=== PATIENT | female | born 1995 | race Caucasian/White ===

== ENCOUNTER 2016-06-21 09:07 | Emergency (ER) | payer OTHER ==
[~2016-06-21] VITALS: Ht 154.9 cm; Wt 90.7 kg
[~2016-06-21 09:07] MED LIST: AMOXIL500 MG PO; ANAPROX DS550 MG PO; AUGMENTIN 875 M1 TAB PO; BENADRYL25 MG PO; FEOSOL65 MG; MACROBID100 M1 PO; MIRENA52 MG IU; NKHM; PNV-SELECT1 TAB; PREDNICOT20 MG PO; PROTONIX40 MG PO; PROZAC10 MG PO; PYRIDIUM100 MG PO; Zofran4 MG PO
[2016-06-21] MEDS ORDERED: Motrin,Rufen800 MG PO (09:59)
== END 2016-06-21 10:04 | disposition home or self-care (01) ==
LOC: ED 09:07
DX: S90.121A Contusion of right lesser toe(s) without damage to nail, initial encounter (principal); Z88.6 Allergy status to analgesic agent; W22.8XXA Striking against or struck by other objects, initial encounter; Y93.9 Activity, unspecified; Y92.9 Unspecified place or not applicable; Y99.9 Unspecified external cause status

== ENCOUNTER 2017-08-11 12:36 | Inpatient (IN) | payer OTHER ==
[2017-08-11] VITALS (7 sets, daily range): BP systolic 108–139; BP diastolic 64–88
[~2017-08-11] VITALS: Ht 152.4 cm; Wt 91.7 kg
--- NOTE | ~2017-08-11 | PR ---
[place], [place] PROGRESS NOTE NAME: MIC RUIZ UNIT #: [id number] ROOM: 401 DOCTOR: JONATHON FERMIN,DONOVAN Verduzco BIRTHDATE: [birth year] DOS: ADDENDUM After reviewing the chart, labs and radiographs, I agree with the plans as described above. We will follow the patient clinically and adjust accordingly. DONOVAN HOLT MD CM:PNTRANS [id number] DONOVAN HOLT MD 08/13/17 2344 interface
--- NOTE | ~2017-08-11 | CON ---
[place], [place] REPORT OF CONSULTATION NAME: MIC RUIZ UNIT #: [id number] ROOM: 401 DOCTOR: LIZZETH FERMINCHOLO BIRTHDATE: [birth year] DOS: 08/12/2017 HISTORY OF PRESENT ILLNESS: A 21 years old patient who has presented with epigastric distress, dysphagia, nausea, esophageal pyrosis. She was admitted for definitive evaluation since she had difficulty swallowing. Her white blood cell was 9, H and H of 13 and 38, lactic acid was 1.0, comprehensive metabolic panel, electrolyte balance, corrected potassium, GFR greater than 60. Phosphorus 1.5. CBC differential reassessed. Soft tissue of the neck, swelling of hypopharynx, tonsillitis has been reported. Strep throat study has been negative. PAST MEDICAL HISTORY: Associated with no previous continuous care medical issues. PAST SURGICAL HISTORY: Tonsillectomy, . SOCIAL HISTORY: Nonsmoker, nonalcohol consumer. FAMILY HISTORY: Noncontributory. ALLERGIES: OXYCODONE. MEDICATIONS: List has been reviewed. REVIEW OF SYSTEMS: HEENT: Denies double vision, blurred vision. RESPIRATORY: Denies shortness of breath. CARDIOVASCULAR: Denies chest pain. DIGESTIVE SYSTEM: Dysphagia, dyspepsia, nausea, difficulty swallowing, sore throat. PHYSICAL EXAMINATION: VITAL SIGNS: Stable. HEENT: Head normocephalic, nontraumatic. Mouth and buccal mucosa benign. NECK: Supple, no thyromegaly, no cervical lymphadenopathy. CHEST: Symmetric anatomy, no wheeze, no rhonchi. HEART: Normal sinus rhythm, no gallop, no murmur. ABDOMEN: Soft. No hepato-organomegaly. Bowel sounds present. No pulsatile mass. EXTREMITIES: No cyanosis, no pedal edema. NEUROLOGIC: Alert, oriented to time, place, person. IMPRESSION: Dysphagia, dyspepsia, epigastric pain, ruling out peptic ulcer disease, ruling out esophagitis, esophageal ulcer. PLAN AND DISCUSSION: We will proceed with endoscopy today. Labs reviewed, records reviewed. The patient has had trial of Augmentin therapy 2 weeks ago. [place], [place] REPORT OF CONSULTATION NAME: MIC RUIZ UNIT #: [id number] ROOM: 401 DOCTOR: LIZZETH FERMIN,CHOLO BIRTHDATE: [birth year] CHOLO MOREAU MD CM:CONSTR:REPORT OF CONSULTATION 1411 08/16/17 1140 ALEJANDRA NICOLE MIS.R
--- NOTE | ~2017-08-11 | PR ---
[place], [place] PROGRESS NOTE NAME: MIC RUIZ UNIT #: [id number] ROOM: 401 DOCTOR: CARLY PATEL,AUGUST BIRTHDATE: [birth year] DOS: 08/13/2017 SUBJECTIVE: Mic is a 21-year-old female who is being followed for tonsillitis. She remains on Zosyn. She was changed from Unasyn to Zosyn due to shortage per pharmacy earlier today. She is also on fluconazole. She had had an EGD done which showed some erosions as well as what appeared to be yeast along her esophagus. She had recently been treated with Augmentin. The fungal brushings are pending. Her blood cultures are negative. Influenza was negative. Strep throat culture was negative. She had a temperature today of 101 this afternoon. She has run fevers intermittently though she feels like she is improving overall. She had an IV infiltrate in her right forearm last night and had pain of the right forearm last night. The IV was moved to the left arm today and she developed swelling and erythema of her right forearm earlier today again possibly from an infiltrate. LABORATORY DATA: WBCs 5.7, platelets 117, BUN 9, creatinine 0.59. REVIEW OF SYSTEMS: No nausea, vomiting or diarrhea. No rash or itch. She is tolerating orals better today than she had been and still have burning and discomfort when she swallows going down her esophagus, continues to have some swelling of her neck glands and tenderness. CURRENT MEDICATIONS: Diflucan, Zosyn, Chloraseptic, Protonix, vitamin D, Lovenox, Zofran, Restoril, milk of mag, Dulcolax, Tylenol. PHYSICAL EXAMINATION: VITAL SIGNS: Temperature 101.0, pulse 94, respirations 16, BP 122/83. GENERAL: A 21-year-old female in no acute distress. HEENT: Normocephalic, no visible thrush or rehan of the throat, some mild right cervical node enlargement with tenderness. LUNGS: Clear to auscultation bilaterally. Respirations are even and unlabored. HEART: Regular rhythm. No murmur appreciated. ABDOMEN: Soft, nondistended. EXTREMITIES: No edema, deformity or cyanosis. SKIN: Warm, dry, free of rashes in right forearm where she had had prior IV. No cord palpable. Does have some mild erythema and tenderness. She states it is improving. Nursing has been using warm compresses appropriately on the area. ASSESSMENT: Bilateral tonsillitis as well as a possible Rehan esophagitis based on her EGD. PLAN: Follow up on HIV screen. Her mono screen was negative. Continue Zosyn and fluconazole. Follow up on fungal brushings and dose vancomycin 1.5 grams IV x 1 and recheck the right forearm tomorrow. At this point, there is not a cord palpable that would be consistent with phlebitis. However, there are some swelling in the area. Case discussed with Dr. Donovan Holt. [place], [place] PROGRESS NOTE NAME: MIC RUIZ UNIT #: [id number] ROOM: [facility] DOCTOR: CARLY PATELAUGUST BIRTHDATE: [birth year] MELANIE CARROLL CNP DONOVAN HOLT MD CM:COLTEN [id number] MELANIE CARROLL CNP 08/14/17 1547 interface
--- NOTE | ~2017-08-11 | PROC NOTE ---
[place], [place] PROCEDURE NOTE NAME: MIC RUIZ UNIT #: [id number] ROOM: 401 DOCTOR: CHOLO MOREAU MD BIRTHDATE: [birth year] DATE: 08/12/17 PREOP DX: The patient has presented with dyspepsia, epigastric distress, nausea, dysphagia. POSTOP DX: Intense esophageal suspected to be moniliasis, status post brush for fungal study, status post gastric biopsy from antral erosions and gastritis. PROCEDURE: Today's procedure part of investigation is panendoscopy plus biopsy plus brush of esophagus for fungal study. PREMEDICATION: Versed and Diprivan. SCOPE: Olympus forward-viewing gastroscope Q10 video. REPORT: After putting the patient in left lateral position and application of lubricant to the scope, the scope was introduced; thereafter, under direct visualization, advanced through the length of esophagus without difficulty. As I approached mid esophageal anatomy, there is attendance esophagitis with what appears to be esophageal moniliasis. Photographic series was obtained. Dexter for fungal study is done. Gastric pouch was entered. Multiple gastric erosions, gastritis was identified. Antral biopsy obtained. Duodenal bulb, second and third part within normal limit. The patient was gradually extubated, tolerated procedure well. IMPRESSION: Intense esophageal suspected to be moniliasis, status post brush for fungal study, status post gastric biopsy from antral erosions and gastritis. PLAN AND DISCUSSION: Diflucan 100 mg p.o. b.i.d. today and 100 mg daily for 10 days after that. Awaiting fungal studies and full liquid as tolerated, Protonix 40 mg daily, clinical reassessment. CHOLO MOREAU MD CM:PROCNOTE:PROCEDURE NOTE 1411 1137 CHOLO MOREAU MD
[~2017-08-11 12:36] MED LIST changes: +Motrin,Rufen800 MG PO
[2017-08-11 14:05] LABS: BASO % 0.3 % (0.0-1.0); HEMATOCRIT 38.7 % (37.0-47.0); HEMOGLOBIN 13.5 g/dl (12.0-16.0); LYMPH # 0.6 10*3/uL (1.3-4.4); LYMPH % 6.5 % (27.0-41.0); MEAN CELL VOLUME 84.1 fl (81.0-99.0); MEAN CORPUSCULAR HGB 29.3 pg (27.0-31.0); MEAN CORPUSCULAR HGB CONC 34.9 g/dl (33.0-37.0); MEAN PLATELET VOLUME 10.6 fl (9.6-12.3); MONO % 10.6 % (3.0-9.0); NEUT # 7.7 10*3/uL (2.3-7.9); NEUT % 82.1 % (47.0-73.0); PLATELET COUNT AUTOMATED 155 10*3/uL (130-400); RED CELL DISTRI WIDTH 12.9 % (0-14.5); WHITE BLOOD COUNT 9.4 10*3/uL (4.8-10.8)
[2017-08-11 14:30] LABS: ALBUMIN 3.1 gm/dl (3.1-4.5); ALKALINE PHOSPHATASE 49 U/L (45-117); BUN 15 mg/dl (7-24); CHLORIDE 100 mmol/L (98-107); LIPASE 84 U/L (73-393); POTASSIUM 3.3 mmol/L (3.5-5.1); SGOT/AST 27 IU/L (3-35); SGPT/ALT 36 U/L (12-78); SODIUM 134 mmol/L (136-145); TOTAL PROTEIN 7.9 gm/dL (6.4-8.2)
[2017-08-11 14:36] LABS: BETA-HCG, QUANT < 1.0 mIU/mL (1-3); TROPONIN I < 0.015 ng/ml (<0.045)
[2017-08-11 16:29] LABS: BILIRUBIN 1+ (NEGATIVE); BLOOD NEGATIVE (NEGATIVE); CLARITY SL CLOUDY (CLEAR); COLOR YELLOW (YELLOW); GLUCOSE NEGATIVE (NEGATIVE); KETONE 2+ (NEGATIVE); LEUKO ESTERASE NEGATIVE (NEGATIVE); NITRITE NEGATIVE (NEGATIVE); SPECIFIC GRAVITY >= 1.030 (1.005-1.030)
[2017-08-11 16:35] LABS: BACTERIA 1+; EPITHELIAL CELLS TNTC
[2017-08-11 16:36] LABS: RBC 0-2 rbc/hpf (0-2); WBC 0-2 wbc/hpf (0-5)
[2017-08-12] VITALS (8 sets, daily range): BP systolic 112–134; BP diastolic 73–95
[2017-08-12 07:19] LABS: HEMATOCRIT 34.6 % (37.0-47.0); HEMOGLOBIN 11.6 g/dl (12.0-16.0); MEAN CELL VOLUME 86.7 fl (81.0-99.0); MEAN CORPUSCULAR HGB 29.1 pg (27.0-31.0); MEAN CORPUSCULAR HGB CONC 33.5 g/dl (33.0-37.0); MEAN PLATELET VOLUME 10.7 fl (9.6-12.3); PLATELET COUNT AUTOMATED 135 10*3/uL (130-400); RED BLOOD COUNT 3.99 10*6/uL (4.10-5.10); RED CELL DISTRI WIDTH 12.8 % (0-14.5); WHITE BLOOD COUNT 6.8 10*3/uL (4.8-10.8)
[2017-08-12 07:47] LABS: ALBUMIN 2.5 gm/dl (3.1-4.5); ALKALINE PHOSPHATASE 41 U/L (45-117); BUN 10 mg/dl (7-24); CHLORIDE 104 mmol/L (98-107); CHOLESTEROL 93 mg/dL (<200); FREE T4 1.22 ng/dl (0.76-1.46); HDL CHOLESTEROL 25 mg/dl (40-60); LDL CHOLESTEROL 54 mg/dL (9-159); PHOSPHOROUS 1.5 mg/dL (2.5-4.9); POTASSIUM 3.5 mmol/L (3.5-5.1); SGOT/AST 19 IU/L (3-35); SGPT/ALT 27 U/L (12-78); SODIUM 139 mmol/L (136-145); TOTAL PROTEIN 6.8 gm/dL (6.4-8.2); TRIGLYCERIDES 69 mg/dl (<150); VLDL CHOLESTEROL 14 mg/dL (6-40)
[2017-08-12 07:51] LABS: THYROID STIM HORMONE (HS) 0.995 uIU/ml (0.358-4.75)
[2017-08-12 07:57] LABS: ATYPICAL LYMPHS 3 % (0-0); TOTAL CELLS COUNTED 100 #CELLS
[2017-08-12 07:58] LABS: PLATELET SUFFICIENCY LOW (NORMAL)
[2017-08-12 08:09] LABS: VITAMIN D, 25-HYDROXY 4.3 ng/mL (30-100)
[2017-08-13] VITALS: BP 117/75
[2017-08-13 06:26] LABS: HEMATOCRIT 31.8 % (37.0-47.0); MEAN CELL VOLUME 85.9 fl (81.0-99.0); MEAN CORPUSCULAR HGB 29.7 pg (27.0-31.0); MEAN CORPUSCULAR HGB CONC 34.6 g/dl (33.0-37.0); MEAN PLATELET VOLUME 10.7 fl (9.6-12.3); PLATELET COUNT AUTOMATED 117 10*3/uL (130-400); RED CELL DISTRI WIDTH 12.8 % (0-14.5); WHITE BLOOD COUNT 5.7 10*3/uL (4.8-10.8)
[2017-08-13 06:49] LABS: BUN 9 mg/dl (7-24); CHLORIDE 106 mmol/L (98-107); CREATININE 0.53 mg/dL (0.55-1.02); PHOSPHOROUS 1.9 mg/dL (2.5-4.9); POTASSIUM 3.5 mmol/L (3.5-5.1); SODIUM 140 mmol/L (136-145)
[2017-08-13 07:04] LABS: HIV 1+2 AB + HIV1 P24 AG Non Reactive (Non Reactive)
[2017-08-13 07:06] LABS: TOTAL CELLS COUNTED 100 #CELLS
[2017-08-13 07:07] LABS: PLATELET SUFFICIENCY LOW (NORMAL)
[2017-08-13 08:00] VITALS: BP 123/80
[2017-08-13 12:00] VITALS: BP 125/86
[2017-08-13 16:00] VITALS: BP 122/83
[2017-08-13 20:00] VITALS: BP 120/79
[2017-08-14] VITALS: BP 116/69
[2017-08-14 06:20] LABS: HEMATOCRIT 32.4 % (37.0-47.0); MEAN CELL VOLUME 84.6 fl (81.0-99.0); MEAN CORPUSCULAR HGB 28.7 pg (27.0-31.0); MEAN PLATELET VOLUME 10.7 fl (9.6-12.3); PLATELET COUNT AUTOMATED 137 10*3/uL (130-400); RED BLOOD COUNT 3.83 10*6/uL (4.10-5.10); RED CELL DISTRI WIDTH 12.7 % (0-14.5); WHITE BLOOD COUNT 4.9 10*3/uL (4.8-10.8)
[2017-08-14 06:52] LABS: ALBUMIN 2.2 gm/dl (3.1-4.5); BUN 6 mg/dl (7-24); CHLORIDE 102 mmol/L (98-107); POTASSIUM 3.3 mmol/L (3.5-5.1); SODIUM 138 mmol/L (136-145)
[2017-08-14 06:55] LABS: ALKALINE PHOSPHATASE 34 U/L (45-117); CREATININE 0.56 mg/dL (0.55-1.02); SGOT/AST 12 IU/L (3-35); SGPT/ALT 18 U/L (12-78); TOTAL PROTEIN 6.2 gm/dL (6.4-8.2)
[2017-08-14 07:02] LABS: ATYPICAL LYMPHS 1 % (0-0); BASOPHILS 1 % (0-1); PLATELET SUFFICIENCY NORMAL (NORMAL); TOTAL CELLS COUNTED 100 #CELLS
[2017-08-14 08:00] VITALS: BP 125/77
[2017-08-14 12:00] VITALS: BP 129/78
[2017-08-14] MEDS ORDERED: AUGMENTIN 875-875 MG PO (13:30)
[2017-08-14] MEDS ORDERED: FLUCONAZOLE100 MG PO (13:30)
== END 2017-08-14 14:10 | disposition home or self-care (01) | DRG 872 ==
LOC: ED 12:36 → 4E 19:21 → EDHOLD 19:21 → 4E 19:44
PROVIDERS: Emergency Medicine; Family Medicine; Hospitalist; Internal Medicine; Internal Medicine Nephrology
PROC: 0DD28ZX Extraction of Middle Esophagus, Via Natural or Artificial Opening Endoscopic, Diagnostic (ICD-10-PCS; principal; 2017-08-12)
PROC: 0DB68ZX Excision of Stomach, Via Natural or Artificial Opening Endoscopic, Diagnostic (ICD-10-PCS; 2017-08-12)
DX: A41.9 Sepsis, unspecified organism (principal); B37.81 Candidal esophagitis; R82.2 Biliuria; E87.1 Hypo-osmolality and hyponatremia; K22.10 Ulcer of esophagus without bleeding; E86.0 Dehydration; J03.90 Acute tonsillitis, unspecified; K29.70 Gastritis, unspecified, without bleeding; K25.9 Gastric ulcer, unspecified as acute or chronic, without hemorrhage or perforation; E87.6 Hypokalemia; D72.810 Lymphocytopenia; R70.0 Elevated erythrocyte sedimentation rate; R79.82 Elevated C-reactive protein (CRP); R82.4 Acetonuria; R80.9 Proteinuria, unspecified; R82.71 Bacteriuria; E78.5 Hyperlipidemia, unspecified; E55.9 Vitamin D deficiency, unspecified; T36.8X5A Adverse effect of other systemic antibiotics, initial encounter; Y92.238 Other place in hospital as the place of occurrence of the external cause; Z90.49 Acquired absence of other specified parts of digestive tract; Z88.6 Allergy status to analgesic agent; Z83.79 Family history of other diseases of the digestive system; Z82.61 Family history of arthritis

== ENCOUNTER 2018-04-10 10:15 | Emergency (ER) | payer OTHER ==
[~2018-04-10] VITALS: Wt 90.7 kg
[~2018-04-10 10:15] MED LIST changes: +AUGMENTIN 875-875 MG PO; +FLUCONAZOLE100 MG PO
[2018-04-10] MEDS ORDERED: AMOXICILLIN500 M2 PO (12:22)
[2018-04-10] MEDS ORDERED: ROBITUSSIN DM 105 ML PO (12:22)
== END 2018-04-10 12:26 | disposition home or self-care (01) ==
LOC: ED 10:15
DX: J20.9 Acute bronchitis, unspecified (principal); Z88.6 Allergy status to analgesic agent

== ENCOUNTER → 2019-02-28 | Outpatient (CLI) | payer OTHER ==
[~2019-02-28] MED LIST changes: +AMOXICILLIN500 M2 PO; +ROBITUSSIN DM 105 ML PO
== END | disposition home or self-care (01) ==
LOC: US 13:53
DX: R22.41 Localized swelling, mass and lump, right lower limb (principal)

== ENCOUNTER → 2021-06-17 | Outpatient (CLI) | payer OTHER | LOC: COVID19 15:48 | PROVIDERS: ATTEND Internal Medicine | DX: Z11.52 Encounter for screening for COVID-19 (principal); Z20.822 Contact with and (suspected) exposure to COVID-19 ==

== ENCOUNTER → 2022-06-10 | Outpatient (CLI) | payer OTHER | END | disposition home or self-care (01) | LOC: RAD 16:16 | PROVIDERS: ATTEND Nurse Practitioner Primary Care | DX: R22.2 Localized swelling, mass and lump, trunk (principal) ==

== ENCOUNTER → 2022-07-30 | Outpatient (CLI) | payer OTHER | END | disposition home or self-care (01) | LOC: US 15:10 | PROVIDERS: ATTEND Nurse Practitioner Primary Care | DX: R22.2 Localized swelling, mass and lump, trunk (principal) ==

== ENCOUNTER → 2022-10-26 | Outpatient (CLI) | payer OTHER ==
[2022-10-26 13:27] LABS: BILIRUBIN Negative (Negative); BLOOD Negative (Negative); CLARITY Cloudy (Clear); COLOR Yellow (Yellow); GLUCOSE Negative (Negative); KETONE Negative (Negative); LEUKO ESTERASE Trace (Negative); NITRITE Negative (Negative); UROBILINOGEN 0.2 E.U./dl (0.0-1.0)
[2022-10-26 13:28] LABS: BASO % 0.4 % (0.0-1.0); EOS # 0.1 10*3/uL (0.0-0.4); EOS % 0.9 % (1.0-4.0); HEMATOCRIT 39.3 % (37.0-47.0); LYMPH # 1.8 10*3/uL (1.3-4.4); MEAN CELL VOLUME 85.1 fl (81.0-99.0); MEAN CORPUSCULAR HGB 29.9 pg (27.0-31.0); MEAN CORPUSCULAR HGB CONC 35.1 g/dl (33.0-37.0); MEAN PLATELET VOLUME 11.1 fl (9.6-12.3); MONO # 0.4 10*3/uL (0.1-1.0); MONO % 4.9 % (3.0-9.0); NEUT # 5.8 10*3/uL (2.3-7.9); NEUT % 71.4 % (47.0-73.0); PLATELET COUNT AUTOMATED 170 10*3/uL (130-400); RED BLOOD COUNT 4.62 10*6/uL (4.10-5.10); RED CELL DISTRI WIDTH 12.7 % (0-14.5); WHITE BLOOD COUNT 8.2 10*3/uL (4.8-10.8)
[2022-10-26 13:44] LABS: BACTERIA 3+
[2022-10-26 13:51] LABS: ALKALINE PHOSPHATASE 59 U/L (46-116); BUN 10 mg/dl (9-23); CHLORIDE 107 mmol/L (98-107); POTASSIUM 3.8 mmol/L (3.4-5.1); SGPT/ALT 36 U/L (10-49); TOTAL PROTEIN 7.2 gm/dL (6.0-8.0)
[2022-10-26 14:27] LABS: VITAMIN D, 25-HYDROXY 18.9 ng/mL (30-100)
[2022-10-27 07:06] LABS: HEPATITIS B SURFACE AB Non Reactive (.); HEPATITIS B SURFACE AG Negative (Negative); TOTAL PROTEIN, SERUM 7.1 g/dL (6.0-8.5)
[2022-10-27 12:07] LABS: CCP ANTIBODIES IGG/IGA 6 units (0-19)
[2022-10-27 15:07] LABS: A/G RATIO 1.2 (0.7-1.7); ALBUMIN 3.9 g/dL (2.9-4.4); ALPHA-1-GLOBULIN 0.2 g/dL (0.0-0.4); ALPHA-2-GLOBULIN 0.8 g/dL (0.4-1.0); BETA GLOBULIN 1.2 g/dL (0.7-1.3); GAMMA GLOBULIN 1.1 g/dL (0.4-1.8); GLOBULIN, TOTAL 3.2 g/dL (2.2-3.9); M-SPIKE Not Observed g/dL (Not Observed)
[2022-10-29 00:06] LABS: TB1 Ag VALUE 0.08 IU/mL (.)
== END | disposition home or self-care (01) ==
LOC: LAB 12:17
PROVIDERS: ATTEND Internal Medicine Rheumatology
DX: M47.814 Spondylosis without myelopathy or radiculopathy, thoracic region (principal); Z11.59 Encounter for screening for other viral diseases; M19.90 Unspecified osteoarthritis, unspecified site; M25.50 Pain in unspecified joint; L40.9 Psoriasis, unspecified; L40.50 Arthropathic psoriasis, unspecified; M46.1 Sacroiliitis, not elsewhere classified; M54.6 Pain in thoracic spine; L73.2 Hidradenitis suppurativa; M45.0 Ankylosing spondylitis of multiple sites in spine; E55.9 Vitamin D deficiency, unspecified

== ENCOUNTER 2024-03-23 23:25 | Inpatient (IN) | payer OTHER ==
[~2024-03-23] VITALS: Ht 152.4 cm; Wt 102.1 kg
[2024-03-23] MEDS ORDERED: FAMOTIDINE 50 ML IV ONE (23:35)
[2024-03-23] MEDS ORDERED: methylPREDNISolone sod succ 125 MG VIAL IV ONE (23:35)
[2024-03-23] MEDS ORDERED: diphenhydrAMINE hydrochloride 50 MG/ML VIAL IV ONE (23:35)
[2024-03-23 23:36] VITALS: BP 139/97
[2024-03-23 23:52] LABS: EOS # 0.1 10*3/uL (0.0-0.4); EOS % 2.3 % (1.0-4.0); HEMATOCRIT 36.1 % (37.0-47.0); LYMPH # 0.4 10*3/uL (1.3-4.4); LYMPH % 13.4 % (27.0-41.0); MEAN CELL VOLUME 82.4 fl (81.0-99.0); MEAN CORPUSCULAR HGB 29.9 pg (27.0-31.0); MEAN CORPUSCULAR HGB CONC 36.3 g/dl (33.0-37.0); MEAN PLATELET VOLUME 10.7 fl (9.6-12.3); MONO # 0.1 10*3/uL (0.1-1.0); MONO % 3.4 % (3.0-9.0); NEUT # 2.4 10*3/uL (2.3-7.9); NEUT % 79.9 % (47.0-73.0); PLATELET COUNT AUTOMATED 75 10*3/uL (130-400); RED BLOOD COUNT 4.38 10*6/uL (4.10-5.10); RED CELL DISTRI WIDTH 12.6 % (0-14.5)
[2024-03-24 00:08] LABS: BUN 12 mg/dl (9-23); CHLORIDE 102 mmol/L (98-107); POTASSIUM 3.3 mmol/L (3.4-5.1)
[2024-03-24] MEDS ORDERED: LAMOTRIGINE25 M1 PO (02:19)
[2024-03-24] MEDS ORDERED: ACETAMINOPHEN 325 MG TAB PO PRN (02:20)
[2024-03-24] MEDS ORDERED: FLUOXETINE HYDR20 M1 PO (02:20)
[2024-03-24] MEDS ORDERED: Magnesium Hydroxide 30 ML UDC PO PRN (02:20)
[2024-03-24] MEDS ORDERED: BISACODYL 5 MG TAB PO PRN (02:20)
[2024-03-24] MEDS ORDERED: BISACODYL 10 MG SUPP R PRN (02:20)
[2024-03-24] MEDS ORDERED: ACETAMINOPHEN 650 MG SUPP R PRN (02:20)
[2024-03-24] MEDS ORDERED: SODIUM CHLORIDE 0.9% 1,000 ML IV ONE (02:25)
[2024-03-24] MEDS ORDERED: diphenhydrAMINE hydrochloride 50 MG/ML VIAL IV PRN (02:25)
[2024-03-24] MEDS ORDERED: POTASSIUM CHLORIDE 20 MEQ TAB PO ONE (06:10)
[2024-03-24 07:25] LABS: BASO % 0.3 % (0.0-1.0); EOS # 0.1 10*3/uL (0.0-0.4); EOS % 1.6 % (1.0-4.0); HEMATOCRIT 35.4 % (37.0-47.0); LYMPH # 0.4 10*3/uL (1.3-4.4); LYMPH % 14.1 % (27.0-41.0); MEAN CELL VOLUME 83.9 fl (81.0-99.0); MEAN CORPUSCULAR HGB 29.1 pg (27.0-31.0); MEAN CORPUSCULAR HGB CONC 34.7 g/dl (33.0-37.0); MONO # 0.1 10*3/uL (0.1-1.0); NEUT # 2.5 10*3/uL (2.3-7.9); NEUT % 80.7 % (47.0-73.0); PLATELET COUNT AUTOMATED 85 10*3/uL (130-400); RED BLOOD COUNT 4.22 10*6/uL (4.10-5.10); RED CELL DISTRI WIDTH 12.6 % (0-14.5); WHITE BLOOD COUNT 3.1 10*3/uL (4.8-10.8)
[2024-03-24 07:51] LABS: ALKALINE PHOSPHATASE 44 U/L (46-116); BUN 10 mg/dl (9-23); CHLORIDE 103 mmol/L (98-107); CHOLESTEROL 106 mg/dL (<200); FREE T4 0.88 ng/dl (0.89-1.76); LDL CHOLESTEROL 61 mg/dL (9-159); POTASSIUM 3.4 mmol/L (3.4-5.1); SGPT/ALT 43 U/L (5-49); TOTAL PROTEIN 6.7 gm/dL (6.0-8.0); TRIGLYCERIDES 84 mg/dl (<150)
[2024-03-24 10:00] VITALS: BP 104/62
[2024-03-24] MEDS ORDERED: Enoxaparin Sodium 40 MG/0.4 ML SYR SC SCH (10:00)
[2024-03-24 13:08] LABS: BILIRUBIN Negative (Negative); BLOOD Negative (Negative); CLARITY Clear (Clear); COLOR Yellow (Yellow); GLUCOSE 1+ (Negative); KETONE Negative (Negative); LEUKO ESTERASE Trace (Negative); NITRITE Negative (Negative); SPECIFIC GRAVITY 1.015 (1.001-1.030)
[2024-03-24 13:26] LABS: EPITHELIAL CELLS 21-30
[2024-03-24 13:27] LABS: BACTERIA 1+
[2024-03-24] MEDS ORDERED: methylPREDNISolone sod succ 40 MG VIAL IV SCH (13:35)
[2024-03-24] MEDS ORDERED: FAMOTIDINE 20 MG TAB PO SCH (13:35)
[2024-03-24] MEDS ORDERED: diphenhydrAMINE hydrochloride 50 MG/ML VIAL IV SCH (14:00)
[2024-03-24 15:07] VITALS: BP 117/68
[2024-03-24 16:52] VITALS: BP 116/66
[2024-03-25 00:36] VITALS: BP 129/79
[2024-03-25 06:29] VITALS: BP 116/77
[2024-03-25] MEDS ORDERED: diphenhydrAMINE hydrochloride 50 MG/ML VIAL IV SCH ×2 (08:00→22:00)
[2024-03-25 08:26] LABS: BASO % 0.4 % (0.0-1.0); EOS % 0.2 % (1.0-4.0); HEMATOCRIT 33.3 % (37.0-47.0); LYMPH # 0.8 10*3/uL (1.3-4.4); LYMPH % 13.4 % (27.0-41.0); MEAN CORPUSCULAR HGB 29.7 pg (27.0-31.0); MEAN CORPUSCULAR HGB CONC 35.7 g/dl (33.0-37.0); MEAN PLATELET VOLUME 11.4 fl (9.6-12.3); MONO # 0.2 10*3/uL (0.1-1.0); MONO % 3.7 % (3.0-9.0); NEUT # 4.6 10*3/uL (2.3-7.9); NEUT % 81.2 % (47.0-73.0); RED BLOOD COUNT 4.01 10*6/uL (4.10-5.10); RED CELL DISTRI WIDTH 12.7 % (0-14.5); WHITE BLOOD COUNT 5.7 10*3/uL (4.8-10.8)
[2024-03-25 08:36] LABS: PLATELET COUNT AUTOMATED 113 10*3/uL (130-400)
[2024-03-25 08:52] LABS: BUN 10 mg/dl (9-23); CHLORIDE 104 mmol/L (98-107); POTASSIUM 3.8 mmol/L (3.4-5.1)
[2024-03-25 09:01] VITALS: BP 121/76
[2024-03-25 13:59] VITALS: BP 119/74
[2024-03-25] MEDS ORDERED: diphenhydrAMINE hydrochloride 50 MG/ML VIAL IV ONE (18:20)
[2024-03-25 18:30] VITALS: BP 122/75
[2024-03-26] VITALS: BP 125/84
[2024-03-26 06:11] LABS: BASO % 0.3 % (0.0-1.0); EOS # 0.1 10*3/uL (0.0-0.4); EOS % 1.4 % (1.0-4.0); HEMATOCRIT 34.7 % (37.0-47.0); LYMPH # 1.7 10*3/uL (1.3-4.4); LYMPH % 22.6 % (27.0-41.0); MEAN CELL VOLUME 84.6 fl (81.0-99.0); MEAN CORPUSCULAR HGB 28.8 pg (27.0-31.0); MEAN PLATELET VOLUME 11.4 fl (9.6-12.3); MONO # 0.5 10*3/uL (0.1-1.0); MONO % 6.3 % (3.0-9.0); NEUT # 5.2 10*3/uL (2.3-7.9); NEUT % 68.2 % (47.0-73.0); PLATELET COUNT AUTOMATED 131 10*3/uL (130-400); RED CELL DISTRI WIDTH 12.7 % (0-14.5); WHITE BLOOD COUNT 7.6 10*3/uL (4.8-10.8)
[2024-03-26 07:09] LABS: BUN 15 mg/dl (9-23); CHLORIDE 103 mmol/L (98-107); POTASSIUM 3.4 mmol/L (3.4-5.1)
[2024-03-26 08:00] VITALS: BP 130/90
[2024-03-26] MEDS ORDERED: methylPREDNISolone sod succ 40 MG VIAL IV SCH (10:00)
[2024-03-26] MEDS ORDERED: FAMOTIDINE20 M1 PO (10:58)
[2024-03-26] MEDS ORDERED: PREDNISONE50 MG PO (10:58)
[2024-03-26] MEDS ORDERED: BENADRYL ALLERG25 M5 PO (10:58)
== END 2024-03-26 12:52 | disposition home or self-care (01) | DRG 385 ==
LOC: ED 23:25 → 4E 03-24 02:09 → EDHOLD 03-24 02:09 → 4E 03-25 18:28
PROVIDERS: Internal Medicine; Student in an Organized Health Care Education/Training Program; ADMIT Student in an Organized Health Care Education/Training Program; ATTEND Student in an Organized Health Care Education/Training Program
DX: L27.0 Generalized skin eruption due to drugs and medicaments taken internally (principal); L51.1 Stevens-Johnson syndrome; E87.6 Hypokalemia; R65.10 Systemic inflammatory response syndrome (SIRS) of non-infectious origin without acute organ dysfunction; E66.01 Morbid (severe) obesity due to excess calories; T42.6X5A Adverse effect of other antiepileptic and sedative-hypnotic drugs, initial encounter; F32.9 Major depressive disorder, single episode, unspecified; Z20.822 Contact with and (suspected) exposure to COVID-19; D72.819 Decreased white blood cell count, unspecified; Y92.89 Other specified places as the place of occurrence of the external cause; Z68.41 Body mass index [BMI] 40.0-44.9, adult; Z88.8 Allergy status to other drugs, medicaments and biological substances; Z82.49 Family history of ischemic heart disease and other diseases of the circulatory system; Z88.6 Allergy status to analgesic agent; Z98.891 History of uterine scar from previous surgery; Z82.61 Family history of arthritis